=== PATIENT | female | born 1935 | race Caucasian/White ===

== ENCOUNTER → 2023-12-18 | Day surgery (SDC) | payer MEDICARE ==
[2023-12-12 15:24] VITALS: BMI 23.4
[~2023-12-18] MED LIST: ALPRAZolam 0.25 MG TAB PO PRN; ALPRAZolam 0.5 MG TAB PO PRN; ATORVASTATIN 80 MG TAB PO STA; NITROGLYCERIN SL TABS 0.4 MG TAB SUBLINGUAL PRN; RX INFO: IV CONTRAST WAS GIVEN 1 EACH MISC MISCELLANE PRN; SODIUM CHLORIDE 0.9% 1,000 ML IV SCH
[2023-12-18] MEDS: ASPIRIN 325 MG TAB PO STA (10:20)
[2023-12-18] MEDS: IV FLUID CONTINUATION 1,000 ML IV ONE (10:37)
[2023-12-18] MEDS: SODIUM CHLORIDE 0.9% 1,000 ML in EMPTY BAG 1 BAG IV SCH (10:37)
[2023-12-18 10:48] VITALS: TEMP 97.1
[2023-12-18] MEDS: SODIUM CHLORIDE 0.9% 1,000 ML IV ONE (12:25)
[2023-12-18] MEDS: BENZOCAINE SPRAY 1 EACH MM ONE (12:33)
[2023-12-18] MEDS: MIDAZOLAM 2 MG/2 ML VIAL IVP ONE (12:47)
[2023-12-18] MEDS: fentaNYL (PF) 50 MCG/1 ML VIAL IVP ONE (12:48)
--- NOTE | 2023-12-18 12:54 | P.PCN ---
Date of Procedure: 12/18/23 Operative Findings: TRANSESOPHAGEAL ECHOCARDIOGRAM [employer]USSIAN [employer]ANGUAGE PROFESSOR: NICOLASA ADAMSON MD, RPVI INDICATION: Valvular heart disease SEDATION: Conscious sedation COMPLICATION: None LEVEL OF SEDATION Moderate with sedation length of 12 minutes PROCEDURE DESCRIPTION: After obtaining an informed consent, the patient was brought to transesophageal echocardiogram room. Pulse oximetry and heart monitors were attached to the patient. The patient throat was sprayed using lidocaine. The patient was turned into le ft lateral position. After that a bite guard was placed. After an appropriate conscious sedation was initiated, the transesophageal echocardiogram was advanced through a bite guard into the mid esophagus. A 2-D echocardiogram images, color Doppler images, continuous wave images, pulse-wave images, of various cardiac structure were performed. After that the transesophageal echocardiogram probe was advanced into the stomach and fixed to obtain transgastric view was. The probe was brought into the mid esophagus. Inter-atrial septum was interrogated using 2D images, color Doppler images, and then contrast study. After that transesophageal echocardiogram was withdrawn out and upon withdrawing the descending thoracic aorta all the way up to the arch was evaluated. CONCLUSION: 1. Normal biventricular systolic function 2. Severe biatrial enlargement 3. Moderate mitral regurgitation 4. Trileaflet aortic valve with no stenosis or regurgitation 5. Intact left atrial appendage 6. Intact interatrial septum
[2023-12-18] MEDS: LIDOCAINE 1% INJ 10MG/ML (20 ML MDV) SQ ONE (12:58)
[2023-12-18] MEDS: VERAPAMIL SYRINGE (5 MG/10 ML) INTRAARTER ONE (12:59)
[2023-12-18] MEDS: HEPARIN SODIUM 1,000 UN/ML (10ML VL) IVP ONE (13:00)
[2023-12-18] MEDS: IOPAMIDOL-370 100ML BTL INJ ONE (13:13)
[2023-12-18] MEDS: HEPARIN SODIUM,PORCINE (1 ML) 2,500 UNIT in SODIUM CHLORIDE 0.9% 250 ML IRRIGATION PRN (13:14)
[2023-12-18] MEDS: HEPARIN SODIUM,PORCINE 10,000 UNIT in SODIUM CHLORIDE 0.9% 1,000 ML IRRIGATION PRN (13:14)
--- NOTE | 2023-12-18 13:17 | P.PCN ---
Date of Procedure: 12/18/23 Operative Findings: CARDIAC CATHETERIZATION PERFORMING PHYSICIAN: Malick Lee MD, RPVI PROCEDURE PERFORMED: 1. Selective right and left coronary angiogram 2. Left heart catheterization and left heart catheterization 3. Ultrasound-guided access of the right radial artery INDICATION: Valvular heart disease COMPLICATION: None APPROACH: Right radial artery LEVEL OF SEDATION: Moderate with a sedation length of [] minutes PROCEDURE DESCRIPTION: After obtaining an informed consent, the patient was brought to cardiac nursery laborer. Local anesthesia was performed using lidocaine subcutaneously. The right radial artery was cannulated using Seldinger technique, the guidewire passed easily, following that we advanced a 5-Tanzanian sheath dilator assembly, the wire and dilator were removed and sheath was flushed. Following that, 2 mg of verapamil along with 5000 unit heparin were given. Selective right and left coronary angiogram using a 6-Tanzanian JR4 and JL 3.5 catheters. Following that we did left heart catheterization using 6-Tanzanian pigtail catheter. The procedure was completed there was no complication. SELECTIVE CORONARY ANGIOGRAM: The right coronary artery: Large-caliber vessel and a dominant vessel and appears to be angiographically normal. Distally bifurcates into PDA and PLV branches both appear to be normal Left main: Is angiographically normal. The left circumflex: Large-caliber vessel nondominant vessel and appears to be also angiographically normal with no evidence of high-grade stenosis The left anterior descending artery: Large caliber vessel also appears to be angiographically normal with no evidence of high-grade stenosis HEMODYNAMICS: The LVEDP was 7 mmHg The pulmonary capillary wedge pressure was 10 mmHg PA pressures were as follows systolic of 32 and diastolic of 14 and mean of 24 mmHg Right ventricular systolic pressure was 33 mmHg and end-diastolic was 7 mmHg Right atrial pressure was 5 mmHg CONCLUSION: 1. Normal right and left sided filling pressure 2. Normal coronary angiogram POSTPROCEDURE MANAGEMENT: Medical treat
[2023-12-18 15:36] VITALS: RESP 16
[2023-12-18 19:02] VITALS: BP 121/65; PULSE 82
== END ==
LOC: CATHCVL 09:36 → EDSEX 12:00
PROVIDERS: ATTEND Internal Medicine Interventional Cardiology
CPT/HCPCS: 93312; 93320; 93325; 93460